=== PATIENT | male | born 1980 | race Hispanic/Latino ===

== ENCOUNTER 2020-08-25 21:09 | Emergency (ER) | payer MEDICARE ==
[~2020-08-25] VITALS: Ht 175.3 cm; Wt 95.3 kg
[2020-08-25] MEDS ORDERED: SODIUM CHLORIDE 0.9% 1000ML 1,000 ML IV ONE (21:15)
[2020-08-25] MEDS ORDERED: SODIUM CHLORIDE 0.9% 1000ML 1,000 ML ONE (21:23)
[2020-08-25 21:53] LABS: BASOPHILS # (AUTO) 0.1 (0.0-0.1); BASOPHILS % 0.6 % (0.0-1.0); EOSINOPHILS % 0.4 % (0.0-6.0); HEMATOCRIT 42.2 % (38.2-49.6); LYMPHOCYTES # (AUTO) 1.7 (1.0-3.2); LYMPHOCYTES % 17.6 % (18.0-39.1); MEAN CORPUSCULAR HEMOGLOBIN 25.9 pg (28-32); MEAN CORPUSCULAR HGB CONC 33.2 g/dL (31-35); MONOCYTES # (AUTO) 0.5 (0.2-0.8); MONOCYTES % 4.8 % (4.4-11.3); NEUTROPHILS # (AUTO) 7.2 (2.1-6.9); NEUTROPHILS % 74.9 % (38.7-80.0); PLATELET COUNT 415 x10e3/uL (140-360); RED BLOOD COUNT 5.41 x10e6/uL (4.3-5.7); RED CELL DISTRIBUTION WIDTH 12.8 % (11.7-14.4)
[2020-08-25 22:08] LABS: ALBUMIN 3.7 g/dL (3.5-5.0); ALBUMIN/GLOBULIN RATIO 0.8 (0.8-2.0); ANION GAP 19.5 mmol/L (8-16); CALCIUM 8.9 mg/dL (8.4-10.2); CREATININE, SERUM 0.79 mg/dL (0.72-1.25); POTASSIUM 3.5 mmol/L (3.5-5.1)
[2020-08-25 23:05] VITALS: BP 106/60
== END 2020-08-25 23:18 | disposition home or self-care (01) ==
LOC: ER 21:32
DX: S02.2XXA Fracture of nasal bones, initial encounter for closed fracture (principal); Y04.0XXA Assault by unarmed brawl or fight, initial encounter; F10.129 Alcohol abuse with intoxication, unspecified; F20.9 Schizophrenia, unspecified
CPT/HCPCS: 36415; 70450; 80053; 80320; 85025; 99284; J7030

== ENCOUNTER 2022-05-17 16:07 | Inpatient (IN) | payer MEDICARE ==
[2022-05-17] VITALS (11 sets, daily range): BP systolic 118–126; BP diastolic 65–69
[~2022-05-17] VITALS: Ht 175.3 cm; Wt 80.3 kg
[2022-05-17] MEDS ORDERED: SODIUM CHLORIDE 0.9% 1000ML 1,000 ML IV STA (16:16)
[2022-05-17] MEDS ORDERED: LORAZEPAM INJ 2 MG/ML VIAL ONE (16:18)
[2022-05-17] MEDS ORDERED: DILTIAZEM HCL VIAL 5 ML ONE (16:19)
[2022-05-17] MEDS ORDERED: SODIUM CHLORIDE 0.9% 1000ML 1,000 ML ONE (16:26)
[2022-05-17] MEDS ORDERED: LORAZEPAM INJ 2 MG/ML VIAL IV ONE ×2 (16:30→18:00)
[2022-05-17] MEDS ORDERED: DILTIAZEM HCL 125 ML IV SCH (16:30)
[2022-05-17] MEDS ORDERED: NALOXONE HCL INJ 0.4 MG/ML AMP ONE (16:33)
[2022-05-17 16:51] LABS: BASOPHILS # (AUTO) 0.2 (0.0-0.1); BASOPHILS % 0.5 % (0.0-1.0); HEMATOCRIT 49.9 % (38.2-49.6); HEMOGLOBIN 16.6 g/dL (14.0-18.0); LYMPHOCYTES # (AUTO) 1.4 (1.0-3.2); LYMPHOCYTES % 4.2 % (18.0-39.1); MEAN CORPUSCULAR HEMOGLOBIN 28.9 pg (28-32); MEAN CORPUSCULAR HGB CONC 33.3 g/dL (31-35); MEAN CORPUSCULAR VOLUME 86.8 fL (81-99); MONOCYTES # (AUTO) 2.8 (0.2-0.8); MONOCYTES % 8.6 % (4.4-11.3); NEUTROPHILS # (AUTO) 28.1 (2.1-6.9); NEUTROPHILS % 85.3 % (38.7-80.0); PLATELET COUNT 428 x10e3/uL (140-360); RED BLOOD COUNT 5.75 x10e6/uL (4.3-5.7); RED CELL DISTRIBUTION WIDTH 13.2 % (11.7-14.4)
[2022-05-17 16:56] LABS: INR 1.06; PROTHROMBIN TIME 14.3 seconds (11.9-14.5)
[2022-05-17 16:57] LABS: PARTIAL THROMBOPLASTIN TIME 51.5 seconds (23.8-35.5)
[2022-05-17 17:05] LABS: ABG PCO2 27 mmHg (35-45); ABG PH 7.34 (7.35-7.45); ABG PO2 108 mmHg (80-105); ABG TCO2 15
[2022-05-17 17:06] LABS: ABG HCO3 15 mmol/L (22-26)
[2022-05-17 17:17] LABS: CLARITY,URINE SL CLOUDY (CLEAR); COLOR,URINE YELLOW (YELLOW); KETONES,URINE 1+ (NEGATIVE); LEUKOCYTE ESTERASE ,URINE NEGATIVE (NEGATIVE); NITRITE,URINE NEGATIVE (NEGATIVE); PROTEIN,URINE DIPSTICK >=300 (NEGATIVE); URINE UROBILINOGEN 0.2 mg/dL (0.2 - 1)
[2022-05-17 17:19] LABS: ALANINE AMINOTRANSFERASE 19 IU/L (0-55); ALBUMIN 4.8 g/dL (3.5-5.0); ALBUMIN/GLOBULIN RATIO 0.9 (0.8-2.0); ALKALINE PHOSPHATASE 95 IU/L (40-150); ANION GAP 33.6 mmol/L (8-16); BLOOD UREA NITROGEN 51 mg/dL (7-26); BUN/CREATININE RATIO 7 (6-25); CALCIUM 10.6 mg/dL (8.4-10.2); CARBON DIOXIDE 16 mmol/L (22-29); CHLORIDE 95 mmol/L (98-107); CREATININE, SERUM 6.85 mg/dL (0.72-1.25); GLUCOSE 83 mg/dL (74-118); MAGNESIUM 1.8 MG/DL (1.3-2.1); SODIUM 138 mmol/L (136-145)
[2022-05-17 17:20] LABS: AMPHETAMINES SCREEN,URINE POSITIVE (NEGATIVE)
[2022-05-17 17:21] LABS: BENZODIAZEPINES SCREEN,URINE NEGATIVE (NEGATIVE); PHENCYCLIDINE SCREEN,URINE NEGATIVE (NEGATIVE)
[2022-05-17 17:25] LABS: CREATINE KINASE 4534 IU/L (30-200)
[2022-05-17 17:27] LABS: POTASSIUM 6.6 mmol/L (3.5-5.1); THYROID STIMULATING HORMONE 2.978 uIU/mL (0.350-4.940)
[2022-05-17] MEDS ORDERED: INSULIN REGULAR, HUMAN 100 UNIT/1 ML IV STA (17:27)
[2022-05-17] MEDS ORDERED: DEXTROSE 50% SYRINGE 50 ML IV STA (17:27)
[2022-05-17] MEDS ORDERED: SODIUM CHLORIDE 0.9% 100 ML IV ONE (17:30)
[2022-05-17] MEDS ORDERED: NALOXONE HCL INJ 0.4 MG/ML AMP IV PRN (17:30)
[2022-05-17 17:33] LABS: BACTERIA,URINE MANY /HPF; EPITHELIAL CELLS,URINE MODERATE /LPF
[2022-05-17] MEDS ORDERED: CALCIUM GLUC 1 G/50 ML NACL 50 ML IV ONE (17:35)
[2022-05-17] MEDS ORDERED: SODIUM CHLORIDE 0.9% 500ML 500 ML IV ONE (17:45)
[2022-05-17] MEDS ORDERED: Vancomycin IV 1 GM in SODIUM CHLORIDE 0.9% 250ML 250 ML IV ONE (18:00)
[2022-05-17] MEDS ORDERED: SODIUM CHLORIDE 0.9% 1000ML 1,000 ML, SODIUM CHLORIDE 0.9% 1000ML 1,000 ML IV ONE (18:00)
[2022-05-17] MEDS ORDERED: LORAZEPAM INJ 2 MG/ML VIAL IV PRN (18:00)
[2022-05-17] MEDS ORDERED: DILTIAZEM HCL IV 5MG/ML 25 ML VIAL ONE (18:07)
[2022-05-17] MEDS ORDERED: SODIUM CHLORIDE 0.9% 100 ML ONE (18:07)
[2022-05-17] MEDS ORDERED: ONDANSETRON HCL INJ 2MG/ML 2ML 2 MG/ML VIAL IV PRN (18:15)
[2022-05-17 18:16] LABS: ALBUMIN 3.3 g/dL (3.5-5.0); ANION GAP 21.4 mmol/L (8-16); CALCIUM 8.4 mg/dL (8.4-10.2); CREATININE, SERUM 5.83 mg/dL (0.72-1.25); POTASSIUM 4.4 mmol/L (3.5-5.1)
[2022-05-17] MEDS ORDERED: SODIUM BICARBONATE 8.4% SYRING 150 ML ONE (18:19)
[2022-05-17] MEDS: SODIUM BICARBONATE 8.4% SYRING 150 ML in DEXTROSE 5% 1,000 ML IV SCH (18:25)
[2022-05-17] MEDS ORDERED: DEXTROSE 5% 1,000 ML IV ONE (18:41)
[2022-05-17 19:21] LABS: BAND NEUTROPHILS % (MANUAL) 10 %; LYMPHOCYTES % (MANUAL) 6 % (19-48); MONOCYTES % (MANUAL) 6 % (3.4-9.0); NEUTROPHILS % (MANUAL) 78 % (40-74); PLATELET ESTIMATE ADEQUATE
[2022-05-17 19:22] LABS: PLATELET MORPHOLOGY COMMENT NORMAL
[2022-05-17 19:23] LABS: STOMATOCYTES SLIGHT
[2022-05-17 21:26] LABS: ALANINE AMINOTRANSFERASE 23 IU/L (0-55); ALBUMIN 3.2 g/dL (3.5-5.0); ALKALINE PHOSPHATASE 63 IU/L (40-150); ANION GAP 17.4 mmol/L (8-16); BLOOD UREA NITROGEN 47 mg/dL (7-26); BUN/CREATININE RATIO 12 (6-25); CALCIUM 7.8 mg/dL (8.4-10.2); CARBON DIOXIDE 16 mmol/L (22-29); CHLORIDE 107 mmol/L (98-107); CREATININE, SERUM 4.06 mg/dL (0.72-1.25); GLUCOSE 141 mg/dL (74-118); SODIUM 137 mmol/L (136-145)
[2022-05-17 21:30] LABS: POTASSIUM 3.4 mmol/L (3.5-5.1)
[2022-05-17] MEDS ORDERED: POTASSIUM CHLORIDE 20 MEQ TAB CR PO STA (21:39)
[2022-05-17] MEDS ORDERED: QUETIAPINE FUM400 MG (21:44)
[2022-05-17] MEDS ORDERED: DIVALPROEX SOD500 MG (21:44)
[2022-05-18] VITALS (25 sets, daily range): BP systolic 80–129; BP diastolic 53–79
[2022-05-18] MEDS: SODIUM BICARBONATE 8.4% SYRING 150 ML in DEXTROSE 5% 1,000 ML IV SCH (00:32)
[2022-05-18 01:14] LABS: ANION GAP 15.1 mmol/L (8-16); CALCIUM 7.6 mg/dL (8.4-10.2); CREATININE, SERUM 2.74 mg/dL (0.72-1.25); POTASSIUM 3.1 mmol/L (3.5-5.1)
[2022-05-18] MEDS ORDERED: POTASSIUM CHLORIDE 20MEQ/100ML 100 ML IV ONE (01:45)
[2022-05-18] MEDS ORDERED: SODIUM BICARBONATE 8.4% SYRING 150 ML in DEXTROSE 5% 1,000 ML IV SCH (03:00)
[2022-05-18 05:19] LABS: BASOPHILS % 0.3 % (0.0-1.0); HEMATOCRIT 35.5 % (38.2-49.6); LYMPHOCYTES % 20.7 % (18.0-39.1); MEAN CORPUSCULAR HEMOGLOBIN 28.5 pg (28-32); MEAN CORPUSCULAR HGB CONC 33.5 g/dL (31-35); MEAN CORPUSCULAR VOLUME 84.9 fL (81-99); MONOCYTES # (AUTO) 2.5 (0.2-0.8); MONOCYTES % 17.3 % (4.4-11.3); NEUTROPHILS # (AUTO) 8.9 (2.1-6.9); NEUTROPHILS % 61.3 % (38.7-80.0); PLATELET COUNT 205 x10e3/uL (140-360); RED BLOOD COUNT 4.18 x10e6/uL (4.3-5.7)
[2022-05-18 05:26] LABS: HEMOGLOBIN 11.9 g/dL (14.0-18.0)
[2022-05-18 05:49] LABS: ANION GAP 16.3 mmol/L (8-16); CALCIUM 7.7 mg/dL (8.4-10.2); CREATININE, SERUM 2.03 mg/dL (0.72-1.25); POTASSIUM 3.3 mmol/L (3.5-5.1)
[2022-05-18 06:04] LABS: ALBUMIN/GLOBULIN RATIO 0.9 (0.8-2.0)
[2022-05-18] MEDS ORDERED: LORAZEPAM INJ 2 MG/ML VIAL IV PRN (07:30)
[2022-05-18] MEDS ORDERED: POTASSIUM CHLORIDE 10MEQ EA PO ONE (08:00)
[2022-05-18] MEDS ORDERED: CHLORDIAZEPOXIDE HCL 25 MG CAP PO SCH ×2 (10:00→18:15)
[2022-05-18] MEDS ORDERED: CHLORDIAZEPOXIDE HCL 25 MG CAP PO PRN (15:15)
[2022-05-18] MEDS: DEPAKOTE DELAYED-RELEASE TAB 500 MG PO SCH (16:33)
[2022-05-18] MEDS: QUETIAPINE FUMARATE 100 MG TAB PO SCH (21:00)
[2022-05-18] MEDS ORDERED: SODIUM CHLORIDE 0.9% 250ML 250 ML ONE (22:42)
[2022-05-19] VITALS (8 sets, daily range): BP systolic 93–107; BP diastolic 51–73
[2022-05-19 06:36] LABS: BASOPHILS % 0.4 % (0.0-1.0); EOSINOPHILS % 0.2 % (0.0-6.0); HEMATOCRIT 36.6 % (38.2-49.6); HEMOGLOBIN 12.1 g/dL (14.0-18.0); LYMPHOCYTES # (AUTO) 2.8 (1.0-3.2); LYMPHOCYTES % 25.1 % (18.0-39.1); MEAN CORPUSCULAR HEMOGLOBIN 28.6 pg (28-32); MEAN CORPUSCULAR HGB CONC 33.1 g/dL (31-35); MEAN CORPUSCULAR VOLUME 86.5 fL (81-99); MONOCYTES # (AUTO) 1.3 (0.2-0.8); MONOCYTES % 11.5 % (4.4-11.3); NEUTROPHILS # (AUTO) 6.9 (2.1-6.9); NEUTROPHILS % 62.4 % (38.7-80.0); PLATELET COUNT 170 x10e3/uL (140-360); RED BLOOD COUNT 4.23 x10e6/uL (4.3-5.7); RED CELL DISTRIBUTION WIDTH 13.2 % (11.7-14.4)
[2022-05-19 06:56] LABS: ALBUMIN 2.9 g/dL (3.5-5.0); ALBUMIN/GLOBULIN RATIO 0.9 (0.8-2.0); ANION GAP 11.1 mmol/L (8-16); CALCIUM 7.9 mg/dL (8.4-10.2); CREATININE, SERUM 0.73 mg/dL (0.72-1.25); POTASSIUM 4.1 mmol/L (3.5-5.1)
[2022-05-19] MEDS: DEPAKOTE DELAYED-RELEASE TAB 500 MG PO SCH ×2 (08:38→17:02)
[2022-05-19] MEDS ORDERED: ONDANSETRON HCL 4 MG ORAL DISINTEGRATING TAB PO PRN (10:00)
[2022-05-19] MEDS: QUETIAPINE FUMARATE 100 MG TAB PO SCH (21:00)
[2022-05-20] VITALS: BP 93/55
[2022-05-20 04:00] VITALS: BP 106/68
[2022-05-20 07:54] VITALS: BP 101/85
[2022-05-20 08:00] VITALS: BP 101/85
[2022-05-20] MEDS: DEPAKOTE DELAYED-RELEASE TAB 500 MG PO SCH (09:35)
[2022-05-20] MEDS ORDERED: POTASSIUM CHLORIDE 10MEQ EA PO ONE (09:45)
[2022-05-20] MEDS ORDERED: FUROSEMIDE INJ 10 MG/ML 4 ML VIAL IV ONE (09:45)
[2022-05-20 11:43] VITALS: BP 121/79
== END 2022-05-20 11:59 | disposition home or self-care (01) | DRG 917 ==
LOC: ER 16:11 → ERHOLD 20:42 → ICU 21:20 → MED/SURG3 05-18 19:45
PROVIDERS: ADMIT Internal Medicine; ATTEND Internal Medicine
DX: T43.622A Poisoning by amphetamines, intentional self-harm, initial encounter (principal); G92.8 Other toxic encephalopathy; N17.0 Acute kidney failure with tubular necrosis; E87.20 Acidosis, unspecified; F10.230 Alcohol dependence with withdrawal, uncomplicated; R45.1 Restlessness and agitation; E86.0 Dehydration; F20.9 Schizophrenia, unspecified; F31.9 Bipolar disorder, unspecified; E83.51 Hypocalcemia; E87.5 Hyperkalemia; Z20.822 Contact with and (suspected) exposure to COVID-19
CPT/HCPCS: 0223U; 36415; 36600; 51700; 70450; 71045; 74176; 80048; 80053; 80307; 81001; 82550; 82553; 82805; 82948; 83605; 83735; 83880; 84443; 84484; 85025; 85610; 85730; 87040; 87086; 93005; 93306; 94799; 99252; 99284; J0610; J0692; J1940; J2060; J2310; J3480; J7030; J7050; J7070; J7799

== ENCOUNTER 2022-05-22 20:50 | Inpatient (IN) | payer MEDICARE ==
[~2022-05-22] VITALS: Ht 175.3 cm; Wt 82.1 kg
[~2022-05-22 20:50] MED LIST: DIVALPROEX SOD500 MG; QUETIAPINE FUM400 MG
[2022-05-22] MEDS ORDERED: DIAZEPAM INJ 5 MG/ML 2 ML IV STA (21:01)
[2022-05-22 21:12] LABS: BASOPHILS # (AUTO) 0.1 (0.0-0.1); BASOPHILS % 0.7 % (0.0-1.0); EOSINOPHILS # (AUTO) 0.2 (0.0-0.4); EOSINOPHILS % 0.9 % (0.0-6.0); HEMATOCRIT 44.5 % (38.2-49.6); HEMOGLOBIN 14.9 g/dL (14.0-18.0); LYMPHOCYTES # (AUTO) 2.4 (1.0-3.2); LYMPHOCYTES % 14.5 % (18.0-39.1); MEAN CORPUSCULAR HEMOGLOBIN 28.4 pg (28-32); MEAN CORPUSCULAR HGB CONC 33.5 g/dL (31-35); MEAN CORPUSCULAR VOLUME 84.9 fL (81-99); MONOCYTES # (AUTO) 1.4 (0.2-0.8); MONOCYTES % 8.3 % (4.4-11.3); NEUTROPHILS # (AUTO) 12.2 (2.1-6.9); NEUTROPHILS % 74.5 % (38.7-80.0); PLATELET COUNT 356 x10e3/uL (140-360); RED BLOOD COUNT 5.24 x10e6/uL (4.3-5.7); RED CELL DISTRIBUTION WIDTH 13.2 % (11.7-14.4)
[2022-05-22] MEDS ORDERED: SODIUM CHLORIDE 0.9% 1000ML 1,000 ML IV STA ×2 (21:29→22:01)
[2022-05-22 21:30] LABS: ALANINE AMINOTRANSFERASE 41 IU/L (0-55); ALBUMIN/GLOBULIN RATIO 0.9 (0.8-2.0); ALKALINE PHOSPHATASE 81 IU/L (40-150); ANION GAP 22.8 mmol/L (8-16); BLOOD UREA NITROGEN 17 mg/dL (7-26); BUN/CREATININE RATIO 12 (6-25); CALCIUM 9.6 mg/dL (8.4-10.2); CARBON DIOXIDE 18 mmol/L (22-29); CHLORIDE 101 mmol/L (98-107); CREATINE KINASE 3358 IU/L (30-200); CREATININE, SERUM 1.42 mg/dL (0.72-1.25); GLUCOSE 178 mg/dL (74-118); POTASSIUM 4.8 mmol/L (3.5-5.1); SODIUM 137 mmol/L (136-145)
[2022-05-22] MEDS ORDERED: DIPHENHYDRAMINE HCL INJ 50 MG/ML VIAL IV ONE (21:30)
[2022-05-22] MEDS ORDERED: DIAZEPAM INJ 5 MG/ML 2 ML IV ONE (22:15)
[2022-05-22] MEDS ORDERED: IOPAMIDOL 370 MG/ML 100 ML INFUS..BTL INJ ONE (22:37)
[2022-05-22 23:28] LABS: SALICYLATE < 5.0 mg/dL (0-30)
[2022-05-23] VITALS (18 sets, daily range): BP systolic 90–153; BP diastolic 51–104
[2022-05-23] MEDS ORDERED: QUETIAPINE FUM400 MG PO (00:06)
[2022-05-23] MEDS ORDERED: DIVALPROEX SOD500 M1 PO (00:06)
[2022-05-23] MEDS: SODIUM CHLORIDE 0.9% 1000ML 1,000 ML IV SCH ×3 (00:16→21:31)
[2022-05-23] MEDS ORDERED: DIAZEPAM INJ 5 MG/ML 2 ML IV STA (01:07)
[2022-05-23 03:10] LABS: BASOPHILS % 0.2 % (0.0-1.0); EOSINOPHILS % 0.2 % (0.0-6.0); HEMATOCRIT 37.7 % (38.2-49.6); HEMOGLOBIN 12.8 g/dL (14.0-18.0); LYMPHOCYTES # (AUTO) 2.6 (1.0-3.2); LYMPHOCYTES % 18.8 % (18.0-39.1); MEAN CORPUSCULAR HEMOGLOBIN 28.8 pg (28-32); MEAN CORPUSCULAR VOLUME 84.9 fL (81-99); MONOCYTES # (AUTO) 1.1 (0.2-0.8); MONOCYTES % 8.2 % (4.4-11.3); NEUTROPHILS # (AUTO) 9.8 (2.1-6.9); NEUTROPHILS % 71.6 % (38.7-80.0); PLATELET COUNT 301 x10e3/uL (140-360); RED BLOOD COUNT 4.44 x10e6/uL (4.3-5.7); RED CELL DISTRIBUTION WIDTH 13.2 % (11.7-14.4)
[2022-05-23] MEDS ORDERED: LORAZEPAM INJ 2 MG/ML VIAL IV STA (03:11)
[2022-05-23] MEDS ORDERED: SODIUM CHLORIDE 0.9% 1000ML 1,000 ML IV STA (03:11)
[2022-05-23 03:29] LABS: ALBUMIN 3.3 g/dL (3.5-5.0); ALBUMIN/GLOBULIN RATIO 0.9 (0.8-2.0); ANION GAP 14.4 mmol/L (8-16); CALCIUM 8.2 mg/dL (8.4-10.2); CREATININE, SERUM 0.92 mg/dL (0.72-1.25); POTASSIUM 4.4 mmol/L (3.5-5.1)
[2022-05-23 03:39] LABS: CREATINE KINASE 2570 IU/L (30-200)
[2022-05-23] MEDS ORDERED: DIPHENHYDRAMINE HCL INJ 50 MG/ML VIAL ONE (04:14)
[2022-05-23] MEDS ORDERED: DIPHENHYDRAMINE HCL INJ 50 MG/ML VIAL IV ONE (04:15)
[2022-05-23] MEDS ORDERED: HYDRALAZINE HCL 20 MG/ML VIAL IV PRN (09:00)
[2022-05-23] MEDS: DEPAKOTE DELAYED-RELEASE TAB 500 MG PO SCH ×2 (12:09→17:20)
[2022-05-23] MEDS: METOPROLOL TARTRATE 25 MG TAB PO SCH ×3 (12:09→22:54)
[2022-05-23 13:31] LABS: CLARITY,URINE CLEAR (CLEAR); COLOR,URINE YELLOW (YELLOW); LEUKOCYTE ESTERASE ,URINE NEGATIVE (NEGATIVE); NITRITE,URINE NEGATIVE (NEGATIVE); PROTEIN,URINE DIPSTICK NEGATIVE (NEGATIVE)
[2022-05-23 13:32] LABS: KETONES,URINE NEGATIVE (NEGATIVE); URINE UROBILINOGEN 0.2 mg/dL (0.2 - 1)
[2022-05-23 14:25] LABS: PHENCYCLIDINE SCREEN,URINE NEGATIVE (NEGATIVE)
[2022-05-23 14:26] LABS: AMPHETAMINES SCREEN,URINE POSITIVE (NEGATIVE); BENZODIAZEPINES SCREEN,URINE POSITIVE (NEGATIVE)
[2022-05-23 14:32] LABS: BACTERIA,URINE FEW /HPF; EPITHELIAL CELLS,URINE FEW /LPF; RBC,URINE 0-5 /HPF (0-5); WBC,URINE (MAN) 0-5 /HPF (0-5)
[2022-05-23 15:20] LABS: CREATINE KINASE 1993 IU/L (30-200)
[2022-05-23] MEDS ORDERED: QUETIAPINE FUMARATE 100 MG TAB PO SCH (21:00)
[2022-05-23 21:44] LABS: PHENCYCLIDINE SCREEN,URINE NEGATIVE (NEGATIVE)
[2022-05-23 21:45] LABS: AMPHETAMINES SCREEN,URINE POSITIVE (NEGATIVE); BENZODIAZEPINES SCREEN,URINE POSITIVE (NEGATIVE)
[2022-05-24] VITALS (19 sets, daily range): BP systolic 91–139; BP diastolic 55–126
[2022-05-24] MEDS ORDERED: ZIPRASIDONE 20 MG VIAL IM STA (01:02)
[2022-05-24 05:23] LABS: BASOPHILS % 0.4 % (0.0-1.0); EOSINOPHILS # (AUTO) 0.3 (0.0-0.4); EOSINOPHILS % 2.6 % (0.0-6.0); HEMATOCRIT 38.1 % (38.2-49.6); HEMOGLOBIN 12.5 g/dL (14.0-18.0); LYMPHOCYTES # (AUTO) 4.6 (1.0-3.2); LYMPHOCYTES % 45.6 % (18.0-39.1); MEAN CORPUSCULAR HEMOGLOBIN 28.4 pg (28-32); MEAN CORPUSCULAR HGB CONC 32.8 g/dL (31-35); MEAN CORPUSCULAR VOLUME 86.6 fL (81-99); MONOCYTES % 9.8 % (4.4-11.3); NEUTROPHILS # (AUTO) 4.1 (2.1-6.9); PLATELET COUNT 380 x10e3/uL (140-360); RED CELL DISTRIBUTION WIDTH 13.1 % (11.7-14.4)
[2022-05-24 05:29] LABS: ANION GAP 12.1 mmol/L (8-16); CALCIUM 8.5 mg/dL (8.4-10.2); CREATININE, SERUM 0.83 mg/dL (0.72-1.25); MAGNESIUM 2.2 MG/DL (1.3-2.1); PHOSPHORUS 3.3 MG/DL (2.3-4.7); POTASSIUM 4.1 mmol/L (3.5-5.1)
[2022-05-24] MEDS: METOPROLOL TARTRATE 25 MG TAB PO SCH ×3 (05:48→22:00)
[2022-05-24] MEDS: SODIUM CHLORIDE 0.9% 1000ML 1,000 ML IV SCH (06:45)
[2022-05-24] MEDS: CHLORDIAZEPOXIDE HCL 25 MG CAP PO PRN (09:27)
[2022-05-24] MEDS: DEPAKOTE DELAYED-RELEASE TAB 500 MG PO SCH ×2 (09:27→17:00)
[2022-05-24] MEDS ORDERED: CHLORDIAZEPOXIDE HCL 25 MG CAP PO ONE (11:45)
[2022-05-24] MEDS ORDERED: LORAZEPAM INJ 2 MG/ML VIAL IM ONE (12:00)
[2022-05-24] MEDS ORDERED: QUETIAPINE FUMARATE 100 MG TAB PO ONE (13:30)
[2022-05-24] MEDS ORDERED: LORAZEPAM INJ 2 MG/ML VIAL IV ONE (14:45)
[2022-05-24] MEDS ORDERED: ZIPRASIDONE 20 MG VIAL IM ONE (15:00)
[2022-05-24] MEDS ORDERED: KETAMINE HCL INJ 50 MG/ML 10 ML VIAL IM ONE (15:30)
[2022-05-24] MEDS: QUETIAPINE FUMARATE 100 MG TAB PO SCH (21:05)
[2022-05-25] VITALS (16 sets, daily range): BP systolic 81–127; BP diastolic 55–73
[2022-05-25] MEDS: LORAZEPAM INJ 2 MG/ML VIAL IV PRN ×5 (01:53→18:10)
[2022-05-25] MEDS: CHLORDIAZEPOXIDE HCL 25 MG CAP PO PRN ×2 (05:36→16:03)
[2022-05-25] MEDS: METOPROLOL TARTRATE 25 MG TAB PO SCH ×4 (05:37→22:07)
[2022-05-25 06:34] LABS: BASOPHILS % 0.4 % (0.0-1.0); EOSINOPHILS # (AUTO) 0.2 (0.0-0.4); EOSINOPHILS % 2.2 % (0.0-6.0); HEMATOCRIT 38.2 % (38.2-49.6); HEMOGLOBIN 12.6 g/dL (14.0-18.0); LYMPHOCYTES # (AUTO) 2.5 (1.0-3.2); LYMPHOCYTES % 27.2 % (18.0-39.1); MEAN CORPUSCULAR HEMOGLOBIN 29.9 pg (28-32); MEAN CORPUSCULAR VOLUME 90.5 fL (81-99); MONOCYTES % 10.5 % (4.4-11.3); NEUTROPHILS # (AUTO) 5.4 (2.1-6.9); NEUTROPHILS % 58.9 % (38.7-80.0); PLATELET COUNT 338 x10e3/uL (140-360); RED BLOOD COUNT 4.22 x10e6/uL (4.3-5.7); RED CELL DISTRIBUTION WIDTH 13.4 % (11.7-14.4)
[2022-05-25 07:31] LABS: ALBUMIN 3.1 g/dL (3.5-5.0); ALBUMIN/GLOBULIN RATIO 0.9 (0.8-2.0); ANION GAP 15.9 mmol/L (8-16); CALCIUM 8.4 mg/dL (8.4-10.2); CREATININE, SERUM 0.82 mg/dL (0.72-1.25); POTASSIUM 3.9 mmol/L (3.5-5.1)
[2022-05-25] MEDS: DEPAKOTE DELAYED-RELEASE TAB 500 MG PO SCH ×2 (07:50→16:03)
[2022-05-25] MEDS ORDERED: LORAZEPAM INJ 2 MG/ML VIAL IV NR (18:45)
[2022-05-25] MEDS ORDERED: ZIPRASIDONE 20 MG VIAL IM NR (19:15)
[2022-05-25] MEDS ORDERED: ZIPRASIDONE 20 MG VIAL IM STA (19:19)
[2022-05-25] MEDS: QUETIAPINE FUMARATE 100 MG TAB PO SCH ×2 (21:00→22:06)
[2022-05-26 07:47] VITALS: BP 110/61
[2022-05-26] MEDS: CHLORDIAZEPOXIDE HCL 25 MG CAP PO PRN (07:52)
[2022-05-26] MEDS: DEPAKOTE DELAYED-RELEASE TAB 500 MG PO SCH (07:52)
[2022-05-26 08:01] VITALS: BP 110/61
[2022-05-26] MEDS: LORAZEPAM INJ 2 MG/ML VIAL IV PRN (10:25)
== END 2022-05-26 10:54 | disposition other institution (70) | DRG 897 ==
LOC: ER 20:58 → INTOOBSV 22:45 → ERHOLD 22:45 → ICU 05-23 08:35 → OBSVTOIN 05-25 09:02
PROVIDERS: ADMIT Internal Medicine; ATTEND Internal Medicine
DX: F15.121 Other stimulant abuse with intoxication delirium (principal); M62.82 Rhabdomyolysis; N17.9 Acute kidney failure, unspecified; F31.9 Bipolar disorder, unspecified; F20.9 Schizophrenia, unspecified; R00.0 Tachycardia, unspecified; I10 Essential (primary) hypertension; E86.0 Dehydration; I16.0 Hypertensive urgency; Z20.822 Contact with and (suspected) exposure to COVID-19
CPT/HCPCS: 36415; 70450; 71045; 71260; 80048; 80053; 80307; 80320; 80329; 81001; 82550; 82553; 83690; 83735; 83880; 84100; 84484; 85025; 85379; 87086; 93005; 94799; 99285; G0378; J0696; J1200; J2060; J3360; J3486; J7030; Q9967